=== PATIENT | male | born 1995 | race Caucasian/White ===

== ENCOUNTER 2019-08-28 10:26 | Emergency (ER) | payer BC ==
[2019-08-28] MEDS ORDERED: Sodium Chloride 0.9% 1,000 ML IV ONE (10:47)
[2019-08-28] MEDS ORDERED: Ondansetron 4 MG/2 ML SDV IVPUSH ONE (10:47)
[2019-08-28] MEDS ORDERED: Sodium Chloride 0.9% 10 ML Syringe FLUSH PRN (10:47)
[2019-08-28] MEDS ORDERED: Sodium Chloride 0.9% 2.5 ML Syringe FLUSH PRN (10:47)
[2019-08-28] MEDS ORDERED: HYDROmorphone 1 MG/ML Syringe IVPUSH ONE (10:49)
--- NOTE | 2019-08-28 10:55 | EDM.PDOC ---
ED HPI GENERAL MEDICAL PROBLEM - General Chief Complaint: Abdominal Pain Stated Complaint: RIGHT SIDE ABDOMINAL PAIN Time Seen by Provider: 08/28/19 10:45 Source of Information: Reports: Patient - History of Present Illness INITIAL COMMENTS - FREE TEXT/NARRATIVE: The patient presents to the ER secondary to severe right-sided abdominal pain. 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 The patient states that he did a "like day" and did some abdominal crunches, 3 sets of 15. He states that he usually does much more so he did not think of it. The next day he started having some periumbilical abdominal soreness as he describes it and has progressively gotten worse and now it has progressively moved to the entire right side of his abdomen. He states that the pain is worse if he tries to stand up straight and he always has to stay hunched. He denies any fevers, but he did throw up once secondary to the pain. The pain is a burning sensation and any movement hurts or as stated above trying to stand up. He tried to go to work today but his coworker saw that he is in a severe amount of pain and they told him that maybe his appendix ruptured. No back pain , no dysuria urinary frequency, no testicular pain, no other acute complaints. Left Lower Abdominal Pain Score (Numeric/FACES): 8 - Related Data Allergies Allergy/AdvReac Type Severity Reaction Status Date / Time Penicillins Allergy Rash Verified 08/28/19 10:53 Home Meds: Home Meds . [No Known Home Meds] 08/28/19 [History] ED ROS GENERAL - Review of Systems Review Of Systems: See Below Free Text/Narrative/Comment: Positive for abdominal pain, negative for fevers, negative for chills, positive for vomiting, negative for dysuria, negative for flank pain, all other Positives and pertinent negatives as per HPI. All other pertinent systems were reviewed and are negative ED EXAM, GI/ABD - Physical Exam Exam: See Below Text/Narrative:: Normal Adult Constitutional: Toxic, healthy appearing young male who appears to be very uncomfortable sitting hunched forward HEENT.: Normocephalic, PERRL, EOMI, External ears are atraumatic, nares are patent without epistaxis Neck: Normal range of motion, Trachea Midline, No stridor Respiratory.: No respiratory distress, No tachypnea, Lungs Clear to Auscultation bilaterally without wheezes, rales, or rhonchi Cardiovascular.: Regular rate and Rhythm without murmurs, rubs, or gallops, good peripheral perfusion GI: Abdomen is soft but nondistended but is very tender to palpation particularly on the right side with positive rebound and guarding and positive heeltap Genital Urinary: Deferred Musculoskeletal: Good range of motion. All 4 extremities present and atraumatic , no edema Back: Full Range of Motion, no CVA tenderness Skin: Warm, Dry, Color is ethnicity appropriate, No acute rash. Lymphatic: No lymphadenopathy noted Neurological: Alert, Awake and oriented x 3, No focal deficits noted appreciate , GCS 15 Psych: Affect, Judgement, mood normal Course - Vital Signs Text/Narrative:: An abdominal strain was considered but this patient did not even do that many sit ups compared to his normal regimen. The patient's pain was periumbilical in nature and is gradually migrated to the right side with a significant abdominal exam so standard labs were ordered along with a CT scan of the abdomen and pelvis. The patient will be given Zofran and Dilaudid for symptomatic control. Lab work is unremarkable other than an unspecified transaminitis. CT scan is negative for any intra-abdominal process and the appendix is specifically mentioned as normal. The patient symptoms have improved and I talked with him and his in detail. While CT scans have excellent sensitivity they have decreased sensitivity and thin patient secondary to decreased intraperitoneal fat stores, and this patient has approximately 6% body fat. Admission for observation was discussed but the patient and his are comfortable with being discharged and remain on a clear liquid diet for the next 24 to 48 hours using ibuprofen and Tylenol for pain control. If the patient develops any fevers and abdominal pain or his abdominal pain getting significantly worse, then he will return to the ER for reevaluation. Last Recorded V/S: Last Vital Signs Temp 37.5 C 08/28/19 10:53 Pulse 86 08/28/19 10:53 Resp 16 08/28/19 10:53 BP 129/73 08/28/19 10:53 Pulse Ox 98 08/28/19 10:53 - Orders/Labs/Meds Orders: Active Orders 24 hr Category Date Time Status Abdomen Pelvis w Cont [CT] Stat Exams 08/28/19 10:47 Ordered Sodium Chloride 0.9% [Saline Flush] Med 08/28/19 10:47 Active 10 ml FLUSH ASDIRECTED PRN Sodium Chloride 0.9% [Saline Flush] Med 08/28/19 10:47 Active 2.5 ml FLUSH ASDIRECTED PRN Saline Lock Insert [OM.PC] Stat Oth 08/28/19 10:47 Ordered Medication Orders Sodium Chloride (Saline Flush) 10 ml FLUSH ASDIRECTED PRN PRN Reason: Keep Vein Open Last Admin: 08/28/19 11:27 Dose: 10 ml Sodium Chloride (Saline Flush) 2.5 ml FLUSH ASDIRECTED PRN PRN Reason: Keep Vein Open Last Admin: 08/28/19 11:27 Dose: 2.5 ml Labs: Laboratory Tests 08/28/19 08/28/19 08/28/19 Range/Units 11:18 11:18 11:18 WBC 6.31 (4.0-11.0) K/uL RBC 5.46 (4.50-5.90) M/uL Hgb 16.6 (13.0-17.0) g/dL Hct 45.6 (38.0-50.0) % MCV 83.5 (80.0-98.0) fL MCH 30.4 (27.0-32.0) pg MCHC 36.4 (31.0-37.0) g/dL RDW Std Deviation 38.0 (28.0-62.0) fl RDW Coeff of Kerline 13 (11.0-15.0) % Plt Count 208 (150-400) K/uL MPV 10.10 (7.40-12.00) fL Neut % (Auto) 56.2 (48.0-80.0) % Lymph % (Auto) 32.3 (16.0-40.0) % [place] % (Auto) 9.2 (0.0-15.0) % Eos % (Auto) 2.1 (0.0-7.0) % Baso % (Auto) 0.2 (0.0-1.5) % Neut # (Auto) 3.6 (1.4-5.7) K/uL Lymph # (Auto) 2.0 (0.6-2.4) K/uL [place] # (Auto) 0.6 (0.0-0.8) K/uL Eos # (Auto) 0.1 (0.0-0.7) K/uL Baso # (Auto) 0.0 (0.0-0.1) K/uL Nucleated RBC % 0.0 /100WBC Nucleated RBCs # 0 K/uL Sodium 140 (136-148) mmol/L Potassium 4.5 (3.5-5.1) mmol/L Chloride 105 (98-107) mmol/L Carbon Dioxide 25.9 (21.0-32.0) mmol/L BUN 21 H (7.0-18.0) mg/dL Creatinine 1.1 (0.8-1.3) mg/dL Est Cr Clr Drug Dosing 111.51 mL/min Estimated GFR (MDRD) > 60.0 ml/min Glucose 88 (74-106) mg/dL Calcium 9.8 (8.5-10.1) mg/dL Total Bilirubin 0.6 (0.2-1.0) mg/dL AST 205 H (15-37) IU/L ALT 56 (14-63) IU/L Alkaline Phosphatase 49 (46-116) U/L Total Protein 7.6 (6.4-8.2) g/dL Albumin 4.4 (3.4-5.0) g/dL Globulin 3.2 (2.6-4.0) g/dL Albumin/Globulin Ratio 1.4 (0.9-1.6) Lipase 99 (73-393) U/L Urine Color YELLOW Urine Appearance CLEAR Urine pH 7.0 (5.0-8.0) Ur Specific [place] 1.025 (1.001-1.035) Urine Protein NEGATIVE (NEGATIVE) mg/dL Urine Glucose (UA) NEGATIVE (NEGATIVE) mg/dL Urine Ketones NEGATIVE (NEGATIVE) mg/dL Urine Occult Blood SMALL H (NEGATIVE) Urine Nitrite NEGATIVE (NEGATIVE) Urine Bilirubin NEGATIVE (NEGATIVE) Urine Urobilinogen 0.2 (<2.0) EU/dL Ur Leukocyte Esterase NEGATIVE (NEGATIVE) Urine RBC 0-3 (0-2/HPF) Urine WBC 0-2 (0-5/HPF) Ur Epithelial Cells RARE (NONE-FEW) Urine Bacteria RARE (NEGATIVE) Urine Mucus LIGHT (NONE-MOD) Meds: Medications Generic Name Dose Route Start Last Admin Trade Name Freq PRN Reason Stop Dose Admin Sodium Chloride 10 ml 08/28/19 10:47 08/28/19 11:27 Saline Flush FLUSH 10 ml ASDIRECTED PRN Administration Keep Vein Open Sodium Chloride 2.5 ml 08/28/19 10:47 08/28/19 11:27 Saline Flush FLUSH 2.5 ml ASDIRECTED PRN Administration Keep Vein Open Discontinued Medications Generic Name Dose Route Start Last Admin Trade Name Odilonq PRN Reason Stop Dose Admin Hydromorphone HCl 1 mg 08/28/19 10:49 08/28/19 11:25 Dilaudid IVPUSH 08/28/19 10:50 1 mg ONETIME ONE Administration Sodium Chloride 1,000 mls @ 999 mls/hr 08/28/19 10:47 08/28/19 11:24 Normal Saline IV 08/28/19 11:47 999 mls/hr BOLUS ONE Administration Ondansetron HCl 4 mg 08/28/19 10:47 08/28/19 11:24 Zofran IVPUSH 08/28/19 10:48 4 mg ONETIME ONE Administration Departure - Departure Time of Disposition: 13:12 Disposition: Home, Self-Care 01 Clinical Impression: Abdominal pain - Discharge Information Referrals: PCP,None [Primary Care Provider] - Forms: ED Department Discharge Additional Instructions: As we discussed, stay on a clear liquid diet for the next 24 to 48 hours. Take ibuprofen and Tylenol for pain control. Return to the ER if you develop fevers and abdominal pain, or if your abdominal pain is getting progressively worse or any other concerns Sepsis Event Note - Focused Exam Vital Signs: Vital Signs Temp Pulse Resp BP Pulse Ox 08/28/19 10:53 37.5 C 86 16 129/73 98 Date Exam was Performed: 08/28/19 Time Exam was Performed: 13:09 - My Orders Last 24 Hours: My Active Orders 08/28/19 10:47 Abdomen Pelvis w Cont [CT] Stat Sodium Chloride 0.9% [Saline Flush] 10 ml FLUSH ASDIRECTED PRN Sodium Chloride 0.9% [Saline Flush] 2.5 ml FLUSH ASDIRECTED PRN Saline Lock Insert [OM.PC] Stat - Assessment/Plan Last 24 Hours: My Active Orders 08/28/19 10:47 Abdomen Pelvis w Cont [CT] Stat Sodium Chloride 0.9% [Saline Flush] 10 ml FLUSH ASDIRECTED PRN Sodium Chloride 0.9% [Saline Flush] 2.5 ml FLUSH ASDIRECTED PRN Saline Lock Insert [OM.PC] Stat
[2019-08-28 12:07] LABS: BLOOD UREA NITROGEN,BUN 21 mg/dL (7.0-18.0); CARBON DIOXIDE,CO2 25.9 mmol/L (21.0-32.0); CHLORIDE,CL 105 mmol/L (98-107); GLUCOSE RANDOM 88 mg/dL (74-106); LIPASE 99 U/L (73-393); POTASSIUM,K 4.5 mmol/L (3.5-5.1); SODIUM,NA 140 mmol/L (136-148)
[2019-08-28] MEDS ORDERED: Ketorolac 30 MG/ML SDV IVPUSH ONE (13:09)
--- NOTE | 2019-08-28 15:32 | CT ---
EXAM DATE: 08/28/19 PATIENT'S AGE: 24 Patient: STARR YOU Facility: [facility] Site . Site : 1995 Study: CT-Abdomen/Pelvis [id number]/15/2020 12:38:21 PM Ordering Physician: SANDY Final Report: INDICATION: Right lower quadrant abdomen pain. TECHNIQUE: CT abdomen and pelvis acquired with 100 cc Isovue 370 IV contrast. COMPARISON: None. FINDINGS: Lower chest: Unremarkable. Liver: Unremarkable. Normal in size and attenuation. No masses. Gallbladder and bile ducts: Unremarkable. No stones or inflammation. No biliary dilatation. Pancreas: Unremarkable. No mass or inflammation. Spleen: Unremarkable. Normal in size. No masses. Adrenal glands: Unremarkable. No nodules. Kidneys: Unremarkable. No masses, stones, or hydronephrosis. GI tract: Unremarkable. Normal in caliber. No sign of mass or inflammation. A calcified fecalith is present within the appendix which is otherwise normal in size and appearance. No sign of appendiceal inflammation. Vasculature: Unremarkable. Mesenteric arteries are patent. Lymph nodes: No lymphadenopathy. Omentum/Peritoneum/Abdominal Wall: Unremarkable. No sign of mass or infiltration. No free air or significant free fluid. Pelvis: Unremarkable. Bones: There are bilateral pars defects at L5 and minimal spondylolisthesis at L5-S1. IMPRESSION: Calcified fecalith is present within an otherwise normal appearing appendix. No sign of acute appendicitis. No other acute or specific finding to explain right lower quadrant pain. Please note that all CT scans at this facility use dose modulation, iterative reconstruction, and/or weight-based dosing when appropriate to reduce radiation dose to as low as reasonably achievable. Dictated by Frandy Felipe MD @ Aug 28 2019 12:47PM Signed by: Frandy Felipe MD @08/28/2019 12:55:08 PM (Electronic Signature) Report Signed by Proxy. BELLEVUE HOSPITALJosue
[2019-08-28] MEDS ORDERED: Iopamidol 755 MG/ML 500 ML Multipack Bottle IVPUSH STA (18:34)
== END 2019-08-28 13:58 | disposition home or self-care (01) ==
LOC: MW.ED 10:26
DX: R10.33 Periumbilical pain (principal); Z88.0 Allergy status to penicillin
CPT/HCPCS: 36415; 74177; 80053; 81001; 83690; 85025; 96361; 96374; 96375; 99284; J1170; J1885; J2405; J7030; Q9967

== ENCOUNTER 2019-08-28 19:13 | Observation (INO) | payer BC ==
[2019-08-28] MEDS ORDERED: Sodium Chloride 0.9% 1,000 ML IV ONE (20:03)
[2019-08-28] MEDS ORDERED: Aluminum Hydroxide/Magnesium Hydroxide/Simethicone Susp 30 ML Cup PO ONE (20:03)
[2019-08-28] MEDS ORDERED: Famotidine 20 MG/2 ML SDV IVPUSH ONE (20:03)
--- NOTE | 2019-08-28 21:19 | EDM.PDOC ---
ED HPI GENERAL MEDICAL PROBLEM - General Chief Complaint: Abdominal Pain Stated Complaint: PAIN ABDOMINAL RIGHT SIDE Time Seen by Provider: 08/28/19 21:19 Source of Information: Reports: Patient History Limitations: Reports: No Limitations - History of Present Illness INITIAL COMMENTS - FREE TEXT/NARRATIVE: Patient is a 24-year-old male no significant past medical history presenting with chief complaint of abdominal pain. Patient was seen in the emergency department earlier today with concerns for appendicitis. Patient's work-up was negative and patient was discharged. Patient has had 2 days of abdominal pain which initially started periumbilical umbilically and is migrated to the right lower quadrant. Pain is severe in nature and worse when he leans back and slightly improved when he leans forward. Patient reports burning sensation in the stomach. Patient reports associated nausea, vomiting. Patient has not had any fevers but does endorse anorexia. Patient has not had any urinary symptoms. Reports and testing with this morning were reviewed. In addition to that documented in the HPI above, the additional ROS was obtained : Constitutional: Denies fevers or chills Eyes: Denies vision changes ENMT: Denies sore throat CV: Denies chest pain Resp: Denies SOB GI: Per HPI : Denies painful urination MSK: Denies recent trauma Skin: Denies new rashes Neuro: Denies new numbness or tingling or weakness Endocrine: Denies unexpected weight loss Heme: Denies bleeding disorders I have reviewed the triage vital signs Const: Well nourished, well developed, appears stated age Eyes: PERRL, no conjunctival injection HENT: NCAT, Neck supple without meningismus CV: RRR, Warm, well-perfused extremities RESP: CTAB, Unlabored respiratory effort GI: Tenderness to palpation of the right lower quadrant. Soft abdomen, no guarding, non-distended, no masses MSK: No gross deformities appreciated : PA Sissy prsent, normal testicular exam. No tenderness or masses. Cremasteric reflex intact Skin: Warm, dry. 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 Sensation and motor function of extremities grossly intact. Psych: Appropriate mood and affect Assessment and plan Patient is a 24-year-old male presenting with a chief complaint of right lower quadrant abdominal pain. Patient demonstrates significant pain and tenderness on abdominal exam. Patient has anorexia with nausea. There is no evidence of any pathology on exam. Differential diagnosis includes appendicitis, inflammatory bowel disease, renal colic, gastritis, muscle strain. Although, the patient was given a GI cocktail without any change in his symptoms. Gastritis and muscle strain seem much less likely. Given the classic presentation of appendicitis, there is high concern for appendicitis despite negative previous CT. Given patient's recent IV contrast, this patient will require oral contrast for CT and will be rescanned to evaluate for appendicitis. Patient will be signed out to the overnight team pending CT and repeat evaluation. RLQ Pain Score (Numeric/FACES): 10 - Related Data Allergies Allergy/AdvReac Type Severity Reaction Status Date / Time Penicillins Allergy Rash Verified 08/29/19 05:41 Home Meds: Home Meds . [No Known Home Meds] 08/28/19 [History] Past Medical History - Infectious Disease History Infectious Disease History: Reports: None - Past Surgical History HEENT Surgical History: Reports: Adenoidectomy, Tonsillectomy Social & Family History - Family History Family Medical History: Noncontributory - Tobacco Use Smoking Status *Q: Current Every Day Smoker Years of Tobacco use: 2 Packs/Tins Daily: 1 - Caffeine Use Caffeine Use: Reports: None - Recreational Drug Use Recreational Drug Use: No ED ROS GENERAL - Review of Systems Review Of Systems: See Below ED EXAM, GI/ABD - Physical Exam Exam: See Below Course - Vital Signs Last Recorded V/S: Last Vital Signs Temp 36.1 C 08/29/19 04:20 Pulse 50 L 08/29/19 04:20 Resp 16 08/29/19 04:20 BP 97/53 L 08/29/19 04:20 Pulse Ox 98 08/29/19 04:20 - Orders/Labs/Meds Orders: Active Orders 24 hr Category Date Time Status Admission Status [Patient Status] [ADT] Stat ADT 08/29/19 00:14 Active NPO Now [Nothing per Oral Now Diet] [DIET] Diet 08/29/19 Breakfast Active Ciprofloxacin in D5W [Cipro in D5W 400 MG/200 ML] 400 Med 08/29/19 00:30 Active mg Premix Bag 1 bag IV Q12H HYDROmorphone [Dilaudid] Med 08/29/19 00:17 Active 0.5 mg IVPUSH Q1H PRN Lactated Ringers [Ringers, Lactated] 1,000 ml Med 08/29/19 00:30 Active IV ASDIRECTED Ondansetron [Zofran] Med 08/29/19 00:30 Active 4 mg IVPUSH Q4H Medication Orders Hydromorphone HCl (Dilaudid) 0.5 mg IVPUSH Q1H PRN PRN Reason: Pain (moderate 4-6) Ciprofloxacin/Dextrose 400 mg/ (Premix) 200 mls @ 200 mls/hr IV Q12H [facility] Last Admin: 08/29/19 00:42 Dose: 200 mls/hr Lactated Ringer's (Ringers, Lactated) 1,000 mls @ 125 mls/hr IV ASDIRECTED [facility] Last Admin: 08/29/19 01:49 Dose: 125 mls/hr Ondansetron HCl (Zofran) 4 mg IVPUSH Q4H [facility] Last Admin: 08/29/19 05:36 Dose: Admin: 08/29/19 03:27 Dose: Not Given Labs: Laboratory Tests 08/28/19 08/28/19 Range/Units 20:49 20:49 WBC 6.26 (4.0-11.0) K/uL RBC 5.27 (4.50-5.90) M/uL Hgb 16.1 (13.0-17.0) g/dL Hct 44.4 (38.0-50.0) % MCV 84.3 (80.0-98.0) fL MCH 30.6 (27.0-32.0) pg MCHC 36.3 (31.0-37.0) g/dL RDW Std Deviation 38.6 (28.0-62.0) fl RDW Coeff of Kerline 13 (11.0-15.0) % Plt Count 193 (150-400) K/uL MPV 10.20 (7.40-12.00) fL Neut % (Auto) 42.8 L (48.0-80.0) % Lymph % (Auto) 47.3 H (16.0-40.0) % [place] % (Auto) 7.7 (0.0-15.0) % Eos % (Auto) 1.9 (0.0-7.0) % Baso % (Auto) 0.3 (0.0-1.5) % Neut # (Auto) 2.7 (1.4-5.7) K/uL Lymph # (Auto) 3.0 H (0.6-2.4) K/uL [place] # (Auto) 0.5 (0.0-0.8) K/uL Eos # (Auto) 0.1 (0.0-0.7) K/uL Baso # (Auto) 0.0 (0.0-0.1) K/uL Nucleated RBC % 0.0 /100WBC Nucleated RBCs # 0 K/uL Sodium 140 (136-148) mmol/L Potassium 4.0 (3.5-5.1) mmol/L Chloride 105 (98-107) mmol/L Carbon Dioxide 25.2 (21.0-32.0) mmol/L BUN 20 H (7.0-18.0) mg/dL Creatinine 1.0 (0.8-1.3) mg/dL Est Cr Clr Drug Dosing 122.66 mL/min Estimated GFR (MDRD) > 60.0 ml/min Glucose 79 (74-106) mg/dL Calcium 9.8 (8.5-10.1) mg/dL Total Bilirubin 0.5 (0.2-1.0) mg/dL AST 286 H (15-37) IU/L ALT 73 H (14-63) IU/L Alkaline Phosphatase 45 L (46-116) U/L Total Protein 7.4 (6.4-8.2) g/dL Albumin 4.3 (3.4-5.0) g/dL Globulin 3.1 (2.6-4.0) g/dL Albumin/Globulin Ratio 1.4 (0.9-1.6) Lipase 95 (73-393) U/L Meds: Medications Generic Name Dose Route Start Last Admin Trade Name Freq PRN Reason Stop Dose Admin Hydromorphone HCl 0.5 mg 08/29/19 00:17 Dilaudid IVPUSH Q1H PRN Pain (moderate 4-6) Ciprofloxacin/Dextrose 400 mg/ 200 mls @ 200 mls/hr 08/29/19 00:30 08/29/19 00:42 Premix IV 200 mls/hr Q12H JACQUELINE Administration Lactated Ringer's 1,000 mls @ 125 mls/hr 08/29/19 00:30 08/29/19 01:49 Ringers, Lactated IV 125 mls/hr ASDIRECTED JACQUELINE Administration Ondansetron HCl 4 mg 08/29/19 00:30 08/29/19 05:36 Zofran IVPUSH Not Given Q4H JACQUELINE Discontinued Medications Generic Name Dose Route Start Last Admin Trade Name Freq PRN Reason Stop Dose Admin Al Hydroxide/Mg Hydroxide 30 ml 08/28/19 20:03 08/28/19 20:36 Mag-Al Plus PO 08/28/19 20:04 30 ml ONETIME ONE Administration Diatrizoate Meglum/Diatrizoate Sod 30 ml 08/28/19 21:44 08/28/19 23:20 Gastrografin 37% PO 08/28/19 21:45 30 ml ONETIME ONE Administration Diatrizoate Meglum/Diatrizoate Sod 90 ml 08/28/19 23:19 08/29/19 03:27 Gastrografin 37% PO 08/28/19 23:20 Not Given ONETIME ONE Diatrizoate Meglum/Diatrizoate Sod 90 ml 08/28/19 23:20 08/29/19 01:24 Gastrografin 37% PO 08/28/19 23:21 90 ml ONETIME ONE Administration Famotidine 20 mg 08/28/19 20:03 08/28/19 20:37 Pepcid IVPUSH 08/28/19 20:04 20 mg ONETIME ONE Administration Hydromorphone HCl 1 mg 08/29/19 00:19 08/29/19 00:37 Dilaudid IVPUSH 08/29/19 00:20 1 mg ONETIME ONE Administration Sodium Chloride 1,000 mls @ 999 mls/hr 08/28/19 20:03 08/28/19 20:37 Normal Saline IV 08/28/19 21:03 999 mls/hr .BOLUS ONE Administration Cefoxitin Sodium 2 gm/ Premix 50 mls @ 100 mls/hr 08/29/19 00:19 08/29/19 00: 49 IV 08/29/19 00:22 Not Given ONETIME ONE Metronidazole 500 mg/ Premix 100 mls @ 100 mls/hr 08/29/19 00:21 08/29/19 00: 42 IV 08/29/19 01:20 100 mls/hr TID ONE Administration Morphine Sulfate 6 mg 08/28/19 21:43 08/28/19 22:03 Morphine IVPUSH 08/28/19 21:44 6 mg ONETIME ONE Administration Nicotine 21 mg 08/29/19 00:17 08/29/19 00:46 Habitrol TRDERM 08/29/19 00:18 21 mg ONETIME ONE Administration Ondansetron HCl 4 mg 08/28/19 21:43 08/28/19 22:02 Zofran IVPUSH 08/28/19 21:44 4 mg ONETIME ONE Administration Departure - Departure Time of Disposition: 23:00 Disposition: Admitted As Inpatient 68 Clinical Impression: Abdominal pain - Discharge Information Sepsis Event Note - Evaluation Sepsis Screening Result: No Definite Risk - Focused Exam Vital Signs: Vital Signs Temp Pulse Resp BP Pulse Ox 08/29/19 04:20 36.1 C 50 L 16 97/53 L 98 08/29/19 01:00 36.6 C 56 L 18 107/62 94 L 08/28/19 23:46 36.6 C 57 L 18 115/64 97 08/28/19 19:34 36.9 C 70 16 118/66 95 Date Exam was Performed: 08/29/19 Time Exam was Performed: 07:12
[2019-08-28 21:25] LABS: BLOOD UREA NITROGEN,BUN 20 mg/dL (7.0-18.0); CARBON DIOXIDE,CO2 25.2 mmol/L (21.0-32.0); CHLORIDE,CL 105 mmol/L (98-107); GLUCOSE RANDOM 79 mg/dL (74-106); LIPASE 95 U/L (73-393); SODIUM,NA 140 mmol/L (136-148)
[2019-08-28] MEDS ORDERED: Morphine 10 MG/ML Syringe IVPUSH ONE (21:43)
[2019-08-28] MEDS ORDERED: Ondansetron 4 MG/2 ML SDV IVPUSH ONE (21:43)
[2019-08-28] MEDS ORDERED: Diatrizoate Meglumine/Diatrizoate Sodium 37% 30 ML Bottle PO ONE ×4 (21:44→23:20)
--- NOTE | 2019-08-28 23:55 | CT ---
INDICATION: Right lower quadrant pain. Possible appendicitis, pain worsening. COMPARISON: Contrast enhanced CT of the abdomen and pelvis from earlier today at 1226 hours TECHNIQUE: CT examination of the abdomen and pelvis was performed without contrast enhancement using 3 mm thick axial sections from the lung bases through the pubic symphysis. Rectal contrast was administered. Please note that all CT scans at this facility use dose modulation, iterative reconstruction, and/or weight-based dosing when appropriate to reduce radiation dose to as low as reasonably achievable. FINDINGS: In the abdomen, the unenhanced liver, spleen, pancreas, and adrenals are normal in appearance. The unenhanced kidneys are normal in appearance. A small amount of contrast is seen in the collecting systems of both kidneys from the previously performed IV contrast enhanced CT. The gallbladder is normal in appearance. The abdominal aorta is normal in caliber with no sign of dilatation. There is no sign of retroperitoneal mass or adenopathy. The stomach, loops of small bowel, and colon in the abdomen are normal in appearance. The administered rectal contrast has reached the colon in the hepatic flexure but has not passed into the descending colon or cecum. In the pelvis, the appendix is again seen to be morphologically normal. It measures 6 millimeters in caliber, with no definite wall thickening and no definite periappendiceal inflammatory change. Again seen is the appendicolith with at the base of the appendix. The loops of small bowel and colon in the pelvis are normal in appearance. The prostate is normal in appearance. The urinary bladder is normal in appearance. There is no sign of pelvic or inguinal mass or adenopathy. The lung bases are clear. The osseous structures are normal in appearance for the patient`s age. IMPRESSION: Normal CT of the abdomen without contrast. CT of the pelvis shows that administered rectal contrast has not reached the cecum or appendix. No change in the appearance of the appendix, with the only abnormality seen being an appendicolith at the base of the appendix. Appendix caliber is unchanged at 6 millimeters, with no sign of any periappendiceal inflammatory stranding. Cannot exclude acute appendicitis. Please note that all CT scans at this facility use dose modulation, iterative reconstruction, and/or weight-based dosing when appropriate to reduce radiation dose to as low as reasonably achievable. Dictated by Eliel Rich MD @ Aug 28 2019 11:37PM Signed by Dr. Eliel Rich @ Aug 28 2019 11:53PM
[2019-08-29] MEDS ORDERED: Nicotine 21 MG/24 Hr Patch TRDERM ONE ×2 (00:17→15:05)
[2019-08-29] MEDS ORDERED: HYDROmorphone 2 MG/ML Syringe IVPUSH PRN (00:17)
[2019-08-29] MEDS ORDERED: HYDROmorphone 1 MG/ML Syringe IVPUSH ONE (00:19)
[2019-08-29] MEDS ORDERED: cefOXitin 2 GM in Premix Bag 1 BAG IV ONE (00:19)
[2019-08-29] MEDS ORDERED: metroNIDAZOLE/Normal Saline 500 MG in Premix Bag 1 BAG IV ONE (00:21)
--- NOTE | 2019-08-29 00:23 | EDM.PDOC ---
ED HPI GENERAL MEDICAL PROBLEM - General Chief Complaint: Abdominal Pain Stated Complaint: PAIN ABDOMINAL RIGHT SIDE Time Seen by Provider: 08/28/19 21:19 Source of Information: Reports: Patient History Limitations: Reports: No Limitations - History of Present Illness INITIAL COMMENTS - FREE TEXT/NARRATIVE: Patient is a 24-year-old male no significant past medical history presenting with chief complaint of abdominal pain. Patient was seen in the emergency department earlier today with concerns for appendicitis. Patient's work-up was negative and patient was discharged. Patient has had 2 days of abdominal pain which initially started periumbilical umbilically and is migrated to the right lower quadrant. Pain is severe in nature and worse when he leans back and slightly improved when he leans forward. Patient reports burning sensation in the stomach. Patient reports associated nausea, vomiting. Patient has not had any fevers but does endorse anorexia. Patient has not had any urinary symptoms. Reports and testing with this morning were reviewed. In addition to that documented in the HPI above, the additional ROS was obtained : Constitutional: Denies fevers or chills Eyes: Denies vision changes ENMT: Denies sore throat CV: Denies chest pain Resp: Denies SOB GI: Per HPI : Denies painful urination MSK: Denies recent trauma Skin: Denies new rashes Neuro: Denies new numbness or tingling or weakness Endocrine: Denies unexpected weight loss Heme: Denies bleeding disorders I have reviewed the triage vital signs Const: Well nourished, well developed, appears stated age Eyes: PERRL, no conjunctival injection HENT: NCAT, Neck supple without meningismus CV: RRR, Warm, well-perfused extremities RESP: CTAB, Unlabored respiratory effort GI: Tenderness to palpation of the right lower quadrant. Soft abdomen, no guarding, non-distended, no masses MSK: No gross deformities appreciated Skin: Warm, dry. No rashes Neuro: Alert, tug captain II-XII grossly intact. Sensation and motor function of extremities grossly intact. Psych: Appropriate mood and affect Assessment and plan Patient is a 24-year-old male presenting with a chief complaint of right lower quadrant abdominal pain. RLQ Pain Score (Numeric/FACES): 10 - Related Data Allergies Allergy/AdvReac Type Severity Reaction Status Date / Time Penicillins Allergy Rash Verified 08/28/19 19:34 Home Meds: Home Meds . [No Known Home Meds] 08/28/19 [History] Past Medical History - Infectious Disease History Infectious Disease History: Reports: None - Past Surgical History HEENT Surgical History: Reports: Adenoidectomy, Tonsillectomy Social & Family History - Family History Family Medical History: Noncontributory - Tobacco Use Smoking Status *Q: Current Every Day Smoker Years of Tobacco use: 2 Packs/Tins Daily: 1 - Caffeine Use Caffeine Use: Reports: None - Recreational Drug Use Recreational Drug Use: No ED ROS GENERAL - Review of Systems Review Of Systems: See Below Free Text/Narrative/Comment: Positive for right lower quadrant abdominal pain, negative fevers, negative for chills, all other Positives and pertinent negatives as per HPI. All other pertinent systems were reviewed and are negative ED EXAM, GI/ABD - Physical Exam Exam: See Below Text/Narrative:: Initial H&P Course - Vital Signs Text/Narrative:: Please see my original H&P from less than [address] Martin H&P earlier in the shift -patient's care was handed back off to me. His abdominal exam remains concerning for appendicitis clinically as he continues to have rebound and a positive heeltap. When the patient was being wheeled off to CT, the wheelchair hit the threshold and there was a small bump and the patient had a lot of pain in his abdomen. I had ordered a CT scan with rectal contrast but the contrast was injected too early so radiology still cannot rule out an appendicitis but there is a definite appendicolith still present. Furthermore, as previously documented, this patient is especially thin and is much more likely to have a false negative test. I contacted surgery Dr. Wang, and she is in agreement to admit the patient and start him on antibiotics with pain control and she will see him in the morning and most likely perform an appendectomy. Last Recorded V/S: Last Vital Signs Temp 36.6 C 08/28/19 23:46 Pulse 57 L 08/28/19 23:46 Resp 18 08/28/19 23:46 BP 115/64 08/28/19 23:46 Pulse Ox 97 08/28/19 23:46 - Orders/Labs/Meds Labs: Laboratory Tests 08/28/19 08/28/19 Range/Units 20:49 20:49 WBC 6.26 (4.0-11.0) K/uL RBC 5.27 (4.50-5.90) M/uL Hgb 16.1 (13.0-17.0) g/dL Hct 44.4 (38.0-50.0) % MCV 84.3 (80.0-98.0) fL MCH 30.6 (27.0-32.0) pg MCHC 36.3 (31.0-37.0) g/dL RDW Std Deviation 38.6 (28.0-62.0) fl RDW Coeff of Kerline 13 (11.0-15.0) % Plt Count 193 (150-400) K/uL MPV 10.20 (7.40-12.00) fL Neut % (Auto) 42.8 L (48.0-80.0) % Lymph % (Auto) 47.3 H (16.0-40.0) % [place] % (Auto) 7.7 (0.0-15.0) % Eos % (Auto) 1.9 (0.0-7.0) % Baso % (Auto) 0.3 (0.0-1.5) % Neut # (Auto) 2.7 (1.4-5.7) K/uL Lymph # (Auto) 3.0 H (0.6-2.4) K/uL [place] # (Auto) 0.5 (0.0-0.8) K/uL Eos # (Auto) 0.1 (0.0-0.7) K/uL Baso # (Auto) 0.0 (0.0-0.1) K/uL Nucleated RBC % 0.0 /100WBC Nucleated RBCs # 0 K/uL Sodium 140 (136-148) mmol/L Potassium 4.0 (3.5-5.1) mmol/L Chloride 105 (98-107) mmol/L Carbon Dioxide 25.2 (21.0-32.0) mmol/L BUN 20 H (7.0-18.0) mg/dL Creatinine 1.0 (0.8-1.3) mg/dL Est Cr Clr Drug Dosing 122.66 mL/min Estimated GFR (MDRD) > 60.0 ml/min Glucose 79 (74-106) mg/dL Calcium 9.8 (8.5-10.1) mg/dL Total Bilirubin 0.5 (0.2-1.0) mg/dL AST 286 H (15-37) IU/L ALT 73 H (14-63) IU/L Alkaline Phosphatase 45 L (46-116) U/L Total Protein 7.4 (6.4-8.2) g/dL Albumin 4.3 (3.4-5.0) g/dL Globulin 3.1 (2.6-4.0) g/dL Albumin/Globulin Ratio 1.4 (0.9-1.6) Lipase 95 (73-393) U/L Meds: Medications Discontinued Medications Generic Name Dose Route Start Last Admin Trade Name Freq PRN Reason Stop Dose Admin Al Hydroxide/Mg Hydroxide 30 ml 08/28/19 20:03 08/28/19 20:36 Mag-Al Plus PO 08/28/19 20:04 30 ml ONETIME ONE Administration Diatrizoate Meglum/Diatrizoate Sod 30 ml 08/28/19 21:44 08/28/19 23:20 Gastrografin 37% PO 08/28/19 21:45 30 ml ONETIME ONE Administration Diatrizoate Meglum/Diatrizoate Sod 90 ml 08/28/19 23:19 Gastrografin 37% PO 08/28/19 23:20 ONETIME ONE Famotidine 20 mg 08/28/19 20:03 08/28/19 20:37 Pepcid IVPUSH 08/28/19 20:04 20 mg ONETIME ONE Administration Sodium Chloride 1,000 mls @ 999 mls/hr 08/28/19 20:03 08/28/19 20:37 Normal Saline IV 08/28/19 21:03 999 mls/hr .BOLUS ONE Administration Morphine Sulfate 6 mg 08/28/19 21:43 08/28/19 22:03 Morphine IVPUSH 08/28/19 21:44 6 mg ONETIME ONE Administration Ondansetron HCl 4 mg 08/28/19 21:43 08/28/19 22:02 Zofran IVPUSH 08/28/19 21:44 4 mg ONETIME ONE Administration Departure - Departure Time of Disposition: 00:23 Disposition: Admitted As Inpatient 68 Condition: Good Clinical Impression: Abdominal pain - Discharge Information Referrals: PCP,None [Primary Care Provider] - Forms: ED Department Discharge Sepsis Event Note - Evaluation Sepsis Screening Result: No Definite Risk - Focused Exam Vital Signs: Vital Signs Temp Pulse Resp BP Pulse Ox 08/28/19 23:46 36.6 C 57 L 18 115/64 97 08/28/19 19:34 36.9 C 70 16 118/66 95 Date Exam was Performed: 08/29/19 Time Exam was Performed: 00:18
[2019-08-29] MEDS: Ciprofloxacin in D5W 400 MG in Premix Bag 1 BAG IV SCH ×4 (00:42→14:35)
[2019-08-29] MEDS ORDERED: Diatrizoate Meglumine/Diatrizoate Sodium 37% 30 ML Bottle PO ONE (01:24)
[2019-08-29] MEDS: Lactated Ringers 1,000 ML IV SCH ×2 (01:49→10:48)
[2019-08-29] MEDS: Ondansetron 4 MG/2 ML SDV IVPUSH SCH ×6 (03:27→20:06)
[2019-08-29] MEDS ORDERED: HYDROmorphone 1 MG/ML Syringe IVPUSH PRN (07:55)
[2019-08-29 08:09] LABS: BLOOD UREA NITROGEN,BUN 16 mg/dL (7.0-18.0); CARBON DIOXIDE,CO2 29.4 mmol/L (21.0-32.0); CHLORIDE,CL 106 mmol/L (98-107); GLUCOSE RANDOM 84 mg/dL (74-106); POTASSIUM,K 4.3 mmol/L (3.5-5.1); SODIUM,NA 140 mmol/L (136-148)
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
[2019-08-29] MEDS ORDERED: diphenhydrAMINE 50 MG/ML SDV IVPUSH PRN (08:52)
[2019-08-29] MEDS ORDERED: Sodium Chloride 0.9% 10 ML Syringe FLUSH PRN (08:52)
[2019-08-29] MEDS ORDERED: Sodium Chloride 0.9% 10 ML SDV IV PRN (08:52)
[2019-08-29] MEDS ORDERED: Sodium Chloride 0.9% 2.5 ML Syringe FLUSH PRN (08:52)
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
[2019-08-29] MEDS ORDERED: Glycopyrrolate 0.2 MG/ML SDV ONE (11:00)
[2019-08-29] MEDS ORDERED: Neostigmine Methylsulfate 1 MG/ML 5 ML Syringe ONE (11:00)
[2019-08-29] MEDS ORDERED: Midazolam 1 MG/ML 2 ML SDV ONE (11:26)
[2019-08-29] MEDS ORDERED: fentaNYL 250 MCG/5 ML SDV ONE (11:26)
[2019-08-29] MEDS ORDERED: Propofol 200 MG/20 ML SDV ONE (11:26)
[2019-08-29] MEDS ORDERED: Ondansetron 4 MG/2 ML SDV ONE ×2 (11:28→12:52)
[2019-08-29] MEDS ORDERED: Rocuronium 100 MG/10 ML Syringe ONE (11:28)
[2019-08-29] MEDS ORDERED: Lidocaine 2% 5 ML SDV ONE (11:28)
[2019-08-29] MEDS ORDERED: Dexamethasone 4 MG/ML 5 ML MDV ONE (11:28)
[2019-08-29] MEDS ORDERED: Bupivacaine 0.5% 30 ML SDV ONE (11:33)
[2019-08-29] MEDS ORDERED: Ketorolac 30 MG/ML SDV ONE (13:09)
--- NOTE | 2019-08-29 13:36 | PCM.OPNOTE ---
- General Post-Op/Procedure Note Date of Surgery/Procedure: 08/29/19 Operative Procedure(s): Laparoscopic appendectomy Findings: Acutely inflamed and dilated appendix consistent with acute appendicitis. No perforation Pre Op Diagnosis: RLQ pain Post-Op Diagnosis: appendicitis Anesthesia Technique: General ET Tube Primary Surgeon: Vielka Wang Fluid Replacement, Intraop: 700 Output, Urine Amount: 300 EBL in mLs: 5 Condition: Stable Free Text/Narrative:: Intake & Output 08/28/19 08/29/19 08/29/19 22:59 06:59 14:59 Intake Total 320 Output Total 0 Balance 320
[2019-08-29] MEDS ORDERED: HYDROmorphone 2 MG/ML Syringe IVPUSH ONE (13:58)
[2019-08-29] MEDS: fentaNYL 100 MCG/2 ML SDV IVPUSH PRN ×2 (13:59→14:04)
--- NOTE | 2019-08-29 14:15 | PCM.POSTAN ---
POST ANESTHESIA ASSESSMENT - MENTAL STATUS Mental Status: Alert - VITAL SIGNS Vital Signs: Last Vital Signs Temp 36.8 C 08/29/19 13:30 Pulse 74 08/29/19 14:10 Resp 12 08/29/19 14:10 BP 102/48 L 08/29/19 14:10 Pulse Ox 98 08/29/19 14:10 - RESPIRATORY Respiratory Status: Respiratory Rate WNL - CARDIOVASCULAR CV Status: Pulse Rate WNL - GASTROINTESTINAL GI Status: No Symptoms - POST OP HYDRATION Hydration Status: Adequate & Stable
[2019-08-29] MEDS: Acetaminophen/HYDROcodone 325-5 MG Tab PO PRN ×3 (14:34→22:34)
[2019-08-29] MEDS ORDERED: LORazepam 0.5 MG Tab PO PRN (22:00)
[2019-08-30] MEDS: Ondansetron 4 MG/2 ML SDV IVPUSH SCH ×3 (01:25→09:33)
[2019-08-30] MEDS: Acetaminophen/HYDROcodone 325-5 MG Tab PO PRN (06:06)
[2019-08-30 06:28] LABS: BLOOD UREA NITROGEN,BUN 15 mg/dL (7.0-18.0); CARBON DIOXIDE,CO2 24.7 mmol/L (21.0-32.0); CHLORIDE,CL 104 mmol/L (98-107); GLUCOSE RANDOM 120 mg/dL (74-106); POTASSIUM,K 4.3 mmol/L (3.5-5.1); SODIUM,NA 140 mmol/L (136-148)
[2019-08-30] MEDS ORDERED: Omeprazole 20 MG Cap.CR PO SCH (07:30)
--- NOTE | 2019-08-30 08:54 | PCM.DCSUM1 ---
Discharge Summary - Hospital Course Free Text/Narrative:: Patient is a 24-year-old male who presented with right lower quadrant pain. Workup was remarkable for elevated liver function tests but the remainder of his labs were normal and 2 CT scans had shown a normal-appearing appendix other than an appendicolith. Because his symptoms and clinical exam were so strongly suggestive for appendicitis, I admitted him and discussed the possibility of surgery. The patient elected to undergo a laparoscopic appendectomy. Intraoperatively he was found to have a dilated and enlarged appendix consistent with acute appendicitis. The surgery was uncomplicated. Postoperatively he felt much better. His diet was advanced without difficulty. His pain was controlled on oral medications. Vital signs are stable overnight. I repeated his LFTs this morning which were same to slightly improved. He was cleared for discharge. - Discharge Data Discharge Date: 08/30/19 Discharge Disposition: Home, Self-Care 01 Condition: Stable - Referral to Home Health Primary Care Physician: PCP None - Discharge Diagnosis/Problem(s) (1) Abdominal pain SNOMED Code(s): 38139471 ICD Code: R10.9 - UNSPECIFIED ABDOMINAL PAIN Status: Acute Current Visit : Yes (2) Transaminitis SNOMED Code(s): 337761567, 197966703 ICD Code: R74.0 - NONSPEC ELEV OF LEVELS OF TRANSAMNS & LACTIC ACID DEHYDRGNSE Status: Acute Current Visit: Yes - Patient Summary/Data Operative Procedure(s) Performed: Laparoscopic appendectomy - Patient Instructions Diet: Regular Diet as Tolerated Activity: No Lifting Over 20 Pounds (for 4 weeks ), Rest and Relax Today Driving: Do Not Drive (for one week) Showering/Bathing: No Showering (until tomorrow morning), No Tub Bathing/ Swimming Wound/Incision Care: Keep Operative Site/Wound Site Clean and Dry Notify Provider of: Fever, Increased Pain, Swelling and Redness, Drainage, Nausea and/or Vomiting - Discharge Plan *PRESCRIPTION DRUG MONITORING PROGRAM REVIEWED*: Yes *COPY OF PRESCRIPTION DRUG MONITORING REPORT IN PATIENT ANGELITA: Yes Home Medications: Home Meds . [No Known Home Meds] 08/28/19 [History] Patient Handouts: Laparoscopic Appendectomy, Adult, Care After, [id number] Referrals: Vielka Wang MD [Physician] - 09/13/19 10:00 am - Discharge Summary/Plan Comment DC Time >30 min.: No - General Info Date of Service: 08/30/19 Functional Status: Reports: Pain Controlled, Tolerating Diet, Ambulating, Urinating - Review of Systems General: Reports: No Symptoms HEENT: Reports: No Symptoms Pulmonary: Reports: No Symptoms Cardiovascular: Reports: No Symptoms Gastrointestinal: Reports: No Symptoms Musculoskeletal: Reports: No Symptoms - Patient Data Vitals - Most Recent: Last Vital Signs Temp 36.6 C 08/30/19 07:10 Pulse 67 08/30/19 07:10 Resp 16 08/30/19 07:10 BP 98/52 L 08/30/19 07:10 Pulse Ox 96 08/30/19 07:10 Weight - Most Recent: 97.5 kg I&O - Last 24 hours: Intake & Output 08/29/19 08/30/19 08/30/19 22:59 06:59 14:59 Intake Total 1704 950 Output Total 600 1000 Balance 1104 -50 Lab Results - Last 24 hrs: Laboratory Results - last 24 hr 08/30/19 Range/Units 05:55 Sodium 140 (136-148) mmol/L Potassium 4.3 (3.5-5.1) mmol/L Chloride 104 (98-107) mmol/L Carbon Dioxide 24.7 (21.0-32.0) mmol/L BUN 15 (7.0-18.0) mg/dL Creatinine 0.9 (0.8-1.3) mg/dL Est Cr Clr Drug Dosing 153.87 mL/min Estimated GFR (MDRD) > 60.0 ml/min Glucose 120 H (74-106) mg/dL Calcium 9.1 (8.5-10.1) mg/dL Total Bilirubin 0.5 (0.2-1.0) mg/dL AST 231 H (15-37) IU/L ALT 92 H (14-63) IU/L Alkaline Phosphatase 42 L (46-116) U/L Total Protein 6.5 (6.4-8.2) g/dL Albumin 3.8 (3.4-5.0) g/dL Globulin 2.7 (2.6-4.0) g/dL Albumin/Globulin Ratio 1.4 (0.9-1.6) Med Orders - Current: Current Medications Hydrocodone Bitart/Acetaminophen ([place] 325-5 Mg) 2 tab PO Q4H PRN PRN Reason: Abdominal Pain Last Admin: 08/30/19 06:06 Dose: 2 tab Diphenhydramine HCl (Benadryl) 25 mg IVPUSH Q4H PRN PRN Reason: Itching Hydromorphone HCl (Dilaudid) 0.5 mg IVPUSH Q1H PRN PRN Reason: Pain (moderate 4-6) Last Admin: 08/29/19 11:39 Dose: 0.5 mg Lorazepam (Ativan) 0.5 mg PO BEDTIME PRN PRN Reason: Anxiety Ondansetron HCl (Zofran) 4 mg IVPUSH Q4H JACQUELINE Last Admin: 08/30/19 05:58 Dose: Not Given Sodium Chloride (Saline Flush) 10 ml FLUSH ASDIRECTED PRN PRN Reason: Keep Vein Open Sodium Chloride (Saline Flush) 2.5 ml FLUSH ASDIRECTED PRN PRN Reason: Keep Vein Open Discontinued Medications Al Hydroxide/Mg Hydroxide (Mag-Al Plus) 30 ml PO ONETIME ONE Stop: 08/28/19 20:04 Last Admin: 08/28/19 20:36 Dose: 30 ml Bupivacaine HCl (Marcaine 0.5%) Confirm Administered Dose 30 ml .ROUTE .STK-MED ONE Stop: 08/29/19 11:34 Dexamethasone (Dexamethasone) Confirm Administered Dose 20 mg .ROUTE .STK-MED ONE Stop: 08/29/19 11:29 Diatrizoate Meglum/Diatrizoate Sod (Gastrografin 37%) 30 ml PO ONETIME ONE Stop: 08/28/19 21:45 Last Admin: 08/28/19 23:20 Dose: 30 ml Diatrizoate Meglum/Diatrizoate Sod (Gastrografin 37%) 90 ml PO ONETIME ONE Stop: 08/28/19 23:20 Last Admin: 08/29/19 03:27 Dose: Not Given Diatrizoate Meglum/Diatrizoate Sod (Gastrografin 37%) 90 ml PO ONETIME ONE Stop: 08/28/19 23:21 Last Admin: 08/29/19 01:24 Dose: 90 ml Famotidine (Pepcid) 20 mg IVPUSH ONETIME ONE Stop: 08/28/19 20:04 Last Admin: 08/28/19 20:37 Dose: 20 mg Fentanyl (Sublimaze) Confirm Administered Dose 250 mcg .ROUTE .STK-MED ONE Stop: 08/29/19 11:27 Fentanyl (Sublimaze) 50 - 100 mcg IVPUSH Q5M PRN PRN Reason: Pain (severe 7-10) Last Admin: 08/29/19 14:04 Dose: 50 mcg Glycopyrrolate (Robinul) Confirm Administered Dose 0.4 mg .ROUTE .STK-MED ONE Stop: 08/29/19 11:01 Hydromorphone HCl (Dilaudid) 1 mg IVPUSH ONETIME ONE Stop: 08/29/19 00:20 Last Admin: 08/29/19 00:37 Dose: 1 mg Hydromorphone HCl (Dilaudid) 0.5 mg IVPUSH Q1H PRN PRN Reason: Pain (moderate 4-6) Hydromorphone HCl (Dilaudid) 1 mg IVPUSH ONETIME ONE Stop: 08/29/19 13:59 Last Admin: 08/29/19 14:35 Dose: Not Given Sodium Chloride (Normal Saline) 1,000 mls @ 999 mls/hr IV .BOLUS ONE Stop: 08/28/19 21:03 Last Admin: 08/28/19 20:37 Dose: 999 mls/hr Cefoxitin Sodium 2 gm/ Premix 50 mls @ 100 mls/hr IV ONETIME ONE Stop: 08/29/19 00:22 Last Admin: 08/29/19 00:49 Dose: Not Given Ciprofloxacin/Dextrose 400 mg/ (Premix) 200 mls @ 200 mls/hr IV Q12H [facility] Last Admin: 08/29/19 14:35 Dose: Not Given Lactated Ringer's (Ringers, Lactated) 1,000 mls @ 125 mls/hr IV ASDIRECTED [facility] Last Admin: 08/29/19 10:48 Dose: 125 mls/hr Metronidazole 500 mg/ Premix 100 mls @ 100 mls/hr IV TID ONE Stop: 08/29/19 01:20 Last Admin: 08/29/19 00:42 Dose: 100 mls/hr Ketorolac Tromethamine (Toradol) Confirm Administered Dose 30 mg .ROUTE .STK- MED ONE Stop: 08/29/19 13:10 Lidocaine (Xylocaine-Mpf 2%) Confirm Administered Dose 5 ml .ROUTE .STK-MED ONE Stop: 08/29/19 11:29 Midazolam HCl (Versed 1 Mg/Ml) Confirm Administered Dose 2 mg .ROUTE .STK-MED ONE Stop: 08/29/19 11:27 Morphine Sulfate (Morphine) 6 mg IVPUSH ONETIME ONE Stop: 08/28/19 21:44 Last Admin: 08/28/19 22:03 Dose: 6 mg Neostigmine Methylsulfate (Neostigmine) Confirm Administered Dose 5 mg .ROUTE .STK-MED ONE Stop: 08/29/19 11:01 Nicotine (Habitrol) 21 mg TRDERM ONETIME ONE Stop: 08/29/19 00:18 Last Admin: 08/29/19 00:46 Dose: 21 mg Nicotine (Habitrol) 21 mg TRDERM ONETIME ONE Stop: 08/29/19 15:06 Last Admin: 08/29/19 15:12 Dose: 21 mg Omeprazole (Omeprazole) 20 mg PO ACBREAKFAST JACQUELINE Ondansetron HCl (Zofran) 4 mg IVPUSH ONETIME ONE Stop: 08/28/19 21:44 Last Admin: 08/28/19 22:02 Dose: 4 mg Ondansetron HCl (Zofran) Confirm Administered Dose 4 mg .ROUTE .STK-MED ONE Stop: 08/29/19 11:29 Ondansetron HCl (Zofran) Confirm Administered Dose 4 mg .ROUTE .STK-MED ONE Stop: 08/29/19 12:53 Propofol (Diprivan 20 Ml) Confirm Administered Dose 200 mg .ROUTE .STK-MED ONE Stop: 08/29/19 11:27 Rocuronium [place] (Zemuron) Confirm Administered Dose 100 mg .ROUTE .STK-MED ONE Stop: 08/29/19 11:29 Sodium Chloride (Normal Saline) 10 ml IV ASDIRECTED PRN PRN Reason: IV Use - Exam Quality Assessment: Reports: Supplemental Oxygen General: Reports: Alert, Oriented HEENT: Reports: Pupils Equal, Pupils Reactive, Mucous Membr. Moist/Concrete Lungs: Reports: Normal Respiratory Effort Cardiovascular: Reports: Regular Rate GI/Abdominal Exam: Soft, Non-Tender, No Distention, No Mass Extremities: Normal Inspection
--- NOTE | 2019-08-30 14:22 | OR ---
SURGEON: VIELKA WANG MD DATE OF PROCEDURE: 08/29/2019 PREOPERATIVE DIAGNOSIS: Right lower quadrant pain. POSTOPERATIVE DIAGNOSIS: Acute appendicitis. PROCEDURE PERFORMED: Laparoscopic appendectomy. PRIMARY SURGEON: Vielka Wang MD. ANESTHESIA: General endotracheal anesthesia. FLUIDS: 700 mL of crystalloid. ESTIMATED BLOOD LOSS: 5 mL. URINE OUTPUT: 300 mL. FINDINGS: Acutely inflamed and dilated appendix, consistent with acute appendicitis. No perforation. COMPLICATIONS: None. INDICATIONS: The patient is a 24-year-old male who presents with 3 days of right lower quadrant pain. Lab work was unremarkable and 2 CTs, which had been performed, showed no evidence of acute appendicitis, but an appendicolith at the base of the appendix. His clinical story and exam are concerning, however, for acute appendicitis. After discussion of the risks and benefits, the patient would like to undergo a laparoscopic, possible open, appendectomy. I explained the procedure; expected perioperative course; and risks including bleeding, infection, or damage to surrounding structures. He verbalized understanding and wishes to proceed. PROCEDURE IN DETAIL: The patient was brought into the OR and placed on the OR table in supine position. A time-out was completed verifying the patient's name, age, date of , allergies, and procedure to be performed. General endotracheal anesthesia was induced. The left arm was tucked to the patient's side and a Gomes catheter placed. The abdomen was prepped and draped in usual standard fashion. I anesthetized an area 2 fingerbreadths below the left subcostal margin in the midclavicular line with 0.5% Marcaine plain. An 11 blade was used to make a 1 cm incision in this area. A 5 mm trocar was used to gain entry into the left upper quadrant under direct visualization. All layers of the abdominal wall were visualized upon entry. The abdomen was insufflated and a 5 mm 30- degree scope inserted. No damage to surrounding structures was noted. A 5 mm trocar was placed under direct visualization just left and lateral to the umbilicus. A 12 mm trocar was placed in the left lower quadrant under direct visualization as well. The patient was placed into Trendelenburg position and airplaned slightly to the left. I turned my attention to the right lower quadrant. The patient had a fold of peritoneum in the right lower quadrant and attached to this was a dilated and inflamed appendix. I grasped the appendix and bluntly took down the adhesions to this peritoneal reflection. I then followed the appendix down to the base of the cecum. I then took the appendiceal mesentery down using a Harmonic scalpel device. My dissection was carried in distal to proximal fashion. As I got closer to the proximal appendix, a [place] dissector was used to carefully take down the mesentery without damaging any surrounding structures. Once the appendix was cleared away to the base, an endoscopic stapling device was brought into the field. I stapled and transected across the base of the appendix using a 45 mm blue load of sarwat. The appendix was then placed in an Endo Catch bag and removed through the 12 mm port site. The 12 mm port was reinserted, and I inspected my operative field. The staple line was intact and no bleeding was noted. There was no fluid or purulent-appearing material in the area. Saline irrigation was performed. I then removed the 12 mm trocar and closed the fascia at the 12 mm trocar site using an interrupted 0 Vicryl suture using a Ramsey-Sarahy device. The 5 mm trocars were then removed under direct visualization and the abdomen allowed to desufflate. The subcutaneous tissues at the 12 mm trocar sites were closed with interrupted 3-0 Vicryl sutures. The skin was closed with a running 4-0 Monocryl stitch. The 5 mm trocar sites were closed with interrupted 4-0 Monocryl sutures. Steri-Strips and sterile dressings were applied. The patient tolerated the procedure well and was transferred to the PACU in stable condition. All counts were complete and correct at the end of the case. KERRY / JET /[id number]
== END 2019-08-30 10:30 | disposition home or self-care (01) ==
LOC: MW.ED 19:13 → MW.SDS 08-29 00:32 → MW.MS 08-29 00:33 → MW.SDS 08-29 08:56 → MW.MS 08-29 08:57 → UNDOADMOB 08-29 08:57
PROVIDERS: ADMIT Surgery; ATTEND Surgery
DX: K35.80 Unspecified acute appendicitis (principal); K38.1 Appendicular concretions; R74.0 Nonspecific elevation of levels of transaminase and lactic acid dehydrogenase [LDH]; F17.210 Nicotine dependence, cigarettes, uncomplicated; Z88.0 Allergy status to penicillin
CPT/HCPCS: 36415; 44970; 74150; 80053; 83690; 85025; 88304; 96361; 96365; 96375; 96376; 99285; A9270; G0378; J0744; J1100; J1170; J1885; J2001; J2250; J2270; J2405; J2704; J3010; J3490; J7030; J7120; Q9963; S0028; 00840; 99284